=== PATIENT | male | born 1985 | race Caucasian/White ===

== ENCOUNTER 2017-11-12 08:18 | Emergency (ER) | payer OTHER ==
[~2017-11-12] VITALS: Ht 182.9 cm; Wt 90.0 kg
[2017-11-12] MEDS ORDERED: CLEOCIN150 MG PO (09:00)
[2017-11-12 09:29] VITALS: BP 134/72
== END 2017-11-12 09:47 | DRG 605 ==
LOC: ED 08:18
PROC: 0HQ4XZZ Repair Neck Skin, External Approach (ICD-10-PCS; principal; 2017-11-12)
DX: S11.91XA Laceration without foreign body of unspecified part of neck, initial encounter (principal); X99.8XXA Assault by other sharp object, initial encounter; Y92.149 Unspecified place in prison as the place of occurrence of the external cause